=== PATIENT | male | born 2005 | race Caucasian/White ===

== ENCOUNTER 2025-07-07 12:01 | Emergency (ER) | payer OTHER ==
[~2025-07-07] VITALS: Ht 190.5 cm; Wt 76.4 kg
--- NOTE | 2025-07-07 12:57 | RADIOLOGY REPORT ---
Indication: FOOT PAIN Technique: DI FOOT, COMPLETE (3VW MIN)FOOT CPLT Comparison: None FINDINGS/IMPRESSION: Acute comminuted fracture of the proximal 4th metatarsal bone. There is proximal articular extension to the tarsometatarsal joint. Age indeterminate fracture of the 4th metatarsal neck. Correlate with point tenderness. Dorsal right foot soft tissue edema. 

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
[2025-07-07] MEDS: ketorolac trometh 30MG/ML vial 30 MG/ML VIAL IM ONE (14:55)
[2025-07-07] MEDS ORDERED: HYDR-3965 PO (15:20)
[2025-07-07 15:35] VITALS: BP 128/68; PULSE 65; RESP 16; TEMP 98.4; O2SAT 99
== END 2025-07-07 15:36 | disposition home or self-care (01) ==
LOC: ER 12:02
DX: S92.301A Fracture of unspecified metatarsal bone(s), right foot, initial encounter for closed fracture (principal); V18.4XXA Pedal cycle driver injured in noncollision transport accident in traffic accident, initial encounter; Y93.55 Activity, bike riding; Y92.89 Other specified places as the place of occurrence of the external cause; Y99.8 Other external cause status
CPT/HCPCS: 73630; 96372; 99283; J1885; L4360